=== PATIENT | female | born 1995 | race Caucasian/White ===

== ENCOUNTER 2016-08-31 15:52 | Outpatient (CLI) ==
[2016-01-30 19:08] VITALS: BMI 26.6
[2016-08-31 17:52] LABS: FLU INTERNAL QC INTERNAL QC VALID; RAPID FLU A NEGATIVE (NEGATIVE); RAPID FLU B NEGATIVE (NEGATIVE)
== END 2016-08-31 15:53 | disposition home or self-care (01) ==
LOC: LAB 15:52
PROVIDERS: ATTEND Nurse Practitioner Family
DX: R50.9 Fever, unspecified (principal); R05 Cough
CPT/HCPCS: 87651; 87804; 87880

== ENCOUNTER 2016-11-24 11:34 | Outpatient (CLI) ==
[2016-01-30 19:08] VITALS: BMI 26.6
[2016-11-24 13:07] LABS: BASOPHILS % (AUTO) 0.3 % (0.0-3.0); EOSINOPHILS # (AUTO) 0.2 K/ul (0.0-0.7); EOSINOPHILS % (AUTO) 2.1 % (0.0-7.0); HEMATOCRIT 39.4 % (37.0-47.0); HEMOGLOBIN 13.4 g/dl (12.0-16.0); IMMATURE GRANULOCYTE % (AUTO) 0.4 % (0.0-5.0); LYMPHOCYTES # (AUTO) 2.1 K/uL (0.60-3.4); LYMPHOCYTES % (AUTO) 27.6 (10.0-50.0); MEAN CORPUSCULAR HEMOGLOBIN 30.7 pg (27.0-31.0); MEAN CORPUSCULAR VOLUME 90.4 fl (81.0-99.0); MONOCYTES # (AUTO) 0.7 K/uL (0.4-2.0); MONOCYTES % (AUTO) 9.3 (0-10); NEUTROPHILS # (AUTO) 4.5 K/ul (2.0-6.9); NEUTROPHILS % (AUTO) 60.3; PLATELET COUNT 347 10^3/uL (140-440); RED BLOOD COUNT 4.36 10^6/ul (4.20-5.40); WHITE BLOOD COUNT 7.53 K/ul (4.6-10.2)
[2016-11-24 13:11] LABS: BILIRUBIN,URINE Negative (NEGATIVE); KETONES,URINE Negative (NEGATIVE); LEUKOCYTE ESTERASE ,URINE Trace (NEGATIVE); NITRITE,URINE Negative (NEGATIVE); PROTEIN,URINE Negative (NEGATIVE); URINE, BLOOD Negative (NEGATIVE)
[2016-11-24 13:13] LABS: URINE PREGNANCY INTERNAL QC INTERNAL QC VALID
[2016-11-24 13:27] LABS: ADD URINE MICROSCOPIC YES
[2016-11-24 13:28] LABS: BACTERIA,URINE 3+ (NOT PRESENT)
[2016-11-24 13:30] LABS: ALBUMIN 4.3 g/dL (3.4-5.0); ALBUMIN/GLOBULIN RATIO 1.23; ANION GAP 13.1; BILIRUBIN,TOTAL 1.32 mg/dL (0.00-1.20); BUN/CREATININE RATIO 9.52; CALCIUM 9.6 mg/dL (8.2-10.2); CREATININE 0.84 mg/dL (0.60-1.30); POTASSIUM 4.1 mmol/L (3.5-5.10); TOTAL PROTEIN 7.8 g/dL (6.4-8.2)
[2016-11-24 13:31] LABS: PROTHROMBIN TIME 9.4 SEC (9.3-11.0)
[2016-11-24 13:34] LABS: D-DIMER 246.04 ng/mL (<500)
[2016-11-25 15:29] LABS: ANTI-NUCLEAR ANTIBODY SCREEN Negative (Negative); RHEUMATOID ARTHRITIS FACTOR < 10.0 IU/mL (0.0-13.9)
== END 2016-11-24 11:35 | disposition home or self-care (01) ==
LOC: LAB 11:34
PROVIDERS: ATTEND Emergency Medicine
DX: R55 Syncope and collapse (principal); M32.9 Systemic lupus erythematosus, unspecified; O03.9 Complete or unspecified spontaneous abortion without complication
CPT/HCPCS: 36415; 80053; 81001; 81025; 84443; 85025; 85379; 85610; 86038; 86430; 87086; 87186

== ENCOUNTER 2016-11-25 12:54 | Outpatient (CLI) ==
[2016-01-30 19:08] VITALS: BMI 26.6
--- NOTE | 2016-11-25 13:24 | CT ---
EXAM: CT Head HISTORY: Syncope and collapse COMPARISON: 01/30/2016 TECHNIQUE: CT head performed without contrast FINDINGS: There is no mass effect, midline shift, or intracranial hemmorhage. Mars white different iation is preserved. There is no extra-axial collection. The ventricles, sulci, and basal cisterns are patent and symmetric. There is no depressed calvarial fracture. The mastoid air cells are nir ar. The visualized paranasal sinuses are clear. IMPRESSION: No acute intracranial abnormality.
== END 2016-11-25 12:55 | disposition home or self-care (01) ==
LOC: RAD 12:54
PROVIDERS: ATTEND Emergency Medicine
DX: R55 Syncope and collapse (principal); M32.9 Systemic lupus erythematosus, unspecified

== ENCOUNTER 2016-12-06 09:11 | Outpatient (CLI) ==
[2016-01-30 19:08] VITALS: BMI 26.6
--- NOTE | 2016-12-08 09:53 | HOLTER ---
PATIENT INFORMATION AND COMMENTS Indications: PALPITATIONS __ Patient Medications: NO MEDICATIONS __ Pre-procedure Summary: Protocol: Standard Heart Rate Started: 12/06/16929 Minimum: 41 BPM Weight: 129 LBS Ended: 12/07/16929 Maximum: 145 BPM Height: 64" Duration: 24 HOURS Average: 82 BPM _ INTERPRETATIONS/OBSERVATIONS: 1. BASIC RHYTHM: SINUS, RATE 41 BPM TO 130 BPM, AVERAGE 80 BPM, SINUS ARRHYTHMIA NOTED 2. RARE PAC'S AND PVC'S 3. NO PAUSES GREATER THAN 2.[address]-T WAVE CHANGES FROM BASELINE 5. NO CORRELATION WITH ACTIVITY LOG MTDD
== END 2016-12-06 09:12 | disposition home or self-care (01) ==
LOC: CAR 09:11
PROVIDERS: ATTEND Emergency Medicine
DX: R55 Syncope and collapse (principal); R00.2 Palpitations

== ENCOUNTER 2017-05-27 13:29 | Emergency (ER) ==
[2017-05-27 13:33] VITALS: BP 136/82; TEMP 98.2; BMI 24.0
--- NOTE | 2017-05-27 14:19 | ED.PDOC ---
General ED Provider: Dr. JAMARI WALLS Chief Complaint: Cough Stated Complaint: cough Time Seen by Physician: 13:33 Mode of Arrival: Walk-In Information Source: Patient Exam Limitations: No limitations [facility] Documentation Reviewed and Agree: Yes Reviewed sepsis parameters & appropriate labs ordered?: No System Inflammatory Response Syndrome: Not Applicable Sepsis Protocol: For patient's 13 years and over: Temp is 96.8 and below OR 101 and greater Pulse >90 BPM Resp >20/minute Acutely Altered Mental Status Are patient's symptoms suggestive of a new infection, such as: -Pneumonia -Skin, Soft Tissue -Endocarditis -UTI -Bone, Joint Infection -Implantable Device -Acute Abdominal Infection -Wound Infection -Meningitis -Blood Stream Catheter Infection -Unknown EENT Complaint Exam - Throat Complaint/Exam Onset/Duration: 1week Symptoms Are: Still present Timimg: Intermittent Initial Severity: Moderate Current Severity: Moderate Aggravating: Reports: None Alleviating: Reports: None Associated Signs and Symptoms: Reports: Cough. Denies: Fever, Dysphagia, Drooling, Foreign body sensation, Chills, Wheezing, Hoarseness, Sinus discomfort , Nasal congestion, Difficulty breathing, Lethargy, Irritability, Decreased activity, Vomiting, Diarrhea, Decreased hearing, Ear drainage Uvula Midline: Yes Myrtle-tonsillar Fluctuence: No Scarlatinaform Rash Present: No Stridor Present: No Sinus Tenderness Present: No Tonsillar Hypertrophy Present: No Tonsillar Exudate Present: No Myrtle-tonsillar Swelling Present: No Adenopathy Present: No Splenomegaly Present: No Differential Diagnoses: Pharyngitis Review of Systems - Review Of Systems Constitutional: Reports: No symptoms Eyes: Reports: No symptoms Ears, Nose, Mouth, Throat: Reports: No symptoms Respiratory: Reports: Cough Cardiac: Reports: No symptoms GI: Reports: No symptoms : Reports: No symptoms Musculoskeletal: Reports: No symptoms Skin: Reports: No symptoms Neurological: Reports: No symptoms Endocrine: Reports: No symptoms Hematologic/Lymphatic: Reports: No symptoms All Other Systems: Reviewed and Negative Past Medical History - Past Medical History Endocrine: Reports: None Cardiovascular: Reports: None Respiratory: Reports: None Hematological: Reports: None Gastrointestinal: Reports: None Genitourinary: Reports: None Neuro/Psych: Reports: Migraine, Anxiety, Depression Musculoskeletal: Reports: Arthritis (Rheumatoid. ) Cancer: Reports: None Last Menstrual Period: yesterday Other Pertinent Past Medical History: Lupus - Surgical History General Surgical History: Reports: None - Family History Family History: Reports: None - Social History Smoking Status: Current every day smoker, Heavy tobacco smoker Hx Substance Use: No Alcohol Screening: Occasionally - Immunizations Tetanus Shot up to Date: Yes Physical Exam - Physical Exam Appearance: Well-appearing, No pain distress, Well-nourished Eyes: YEIMI, EOMI, Conjunctiva clear ENT: Ears normal, Nose normal, Erythema, Exudate Respiratory: Airway patent, Breath sounds clear, Breath sounds equal, Respirations nonlabored Cardiovascular: RRR, Pulses normal, No rub, No murmur GI/: Soft, Nontender, No masses, Bowel sounds normal, No Organomegaly Musculoskeletal: Normal strength, ROM intact, No edema, No calf tenderness Skin: Warm, Dry, Normal color Neurological: Sensation intact, Motor intact, Reflexes intact, Cranial nerves intact, Alert, Oriented Psychiatric: Affect appropriate, Mood appropriate Critical Care Note - Critical Care Note Total Time (mins): 0 Course - Course Vital Signs: Temp Pulse Resp BP Pulse Ox 05/27/17 13:30 98.2 F 96 H 20 136/82 97 Departure - Departure Time of Disposition: 14:18 Disposition: HOME SELF-CARE Discharge Problem: Cough Instructions: Cold Symptoms (ED), Pharyngitis (ED) Condition: Good Pt referred to PMD for follow-up: Yes Allergies/Adverse Reactions: Allergies Penicillins Adverse Reaction (Verified 05/27/17 13:34) Home Medications: Ambulatory Orders Ibuprofen [Motrin] 600 mg PO Q6H PRN #30 tablet 01/30/16 Amoxicillin 500 mg PO Q8HR #21 tablet 05/27/17 Prednisone 20 mg PO DAILYWM #5 tablet 05/27/17
== END 2017-05-27 14:29 | disposition home or self-care (01) ==
LOC: ED 13:29
DX: R05 Cough (principal); F17.210 Nicotine dependence, cigarettes, uncomplicated
CPT/HCPCS: 99282

== ENCOUNTER 2017-08-13 03:14 | Emergency (ER) ==
[2017-08-13 03:33] VITALS: BP 122/81; TEMP 97.6; BMI 25.9
[2017-08-13] MEDS ORDERED: PREDNISONE PO STA (04:17)
[2017-08-13] MEDS ORDERED: TESSALON PERLES PO STA (04:17)
[2017-08-13] MEDS ORDERED: ZITHROMAX PO STA (04:17)
--- NOTE | 2017-08-13 04:17 | ED.PDOC ---
General ED Provider: Dr. EVELYN DONOHUE Chief Complaint: Sore Throat Stated Complaint: Patient states she has had cough that is non productive. sinus pain, left ear ache and sore throat. she also has a horse voice Has a two year old that she does not want to give it to her daughter. Time Seen by Physician: 04:13 Mode of Arrival: Walk-In Information Source: Patient [facility] Documentation Reviewed and Agree: Yes Reviewed sepsis parameters & appropriate labs ordered?: No System Inflammatory Response Syndrome: Not Applicable Sepsis Protocol: For patient's 13 years and over: Temp is 96.8 and below OR 101 and greater Pulse >90 BPM Resp >20/minute Acutely Altered Mental Status Are patient's symptoms suggestive of a new infection, such as: -Pneumonia -Skin, Soft Tissue -Endocarditis -UTI -Bone, Joint Infection -Implantable Device -Acute Abdominal Infection -Wound Infection -Meningitis -Blood Stream Catheter Infection -Unknown System Inflammatory Response Syndrome: Not Applicable EENT Complaint Exam - Throat Complaint/Exam Onset/Duration: 2 days Symptoms Are: Still present Associated Signs and Symptoms: Reports: Dysphagia, Cough. Denies: Fever, Drooling, Foreign body sensation, Chills, Wheezing, Hoarseness, Sinus discomfort , Nasal congestion, Difficulty breathing, Lethargy, Irritability, Decreased activity, Vomiting, Diarrhea, Decreased hearing, Ear drainage Uvula Midline: Yes Myrtle-tonsillar Fluctuence: No Scarlatinaform Rash Present: No Lesions: Absent: Lip, Gums, Tongue, Buccal Mucosa, Pharynx Exanthem: Absent: Lip, Gums, Tongue, Buccal Mucosa, Pharynx Vesicles: Absent: Lip, Gums, Tongue, Buccal Mucosa, Pharynx Stridor Present: No Sinus Tenderness Present: Yes (right maxillary area ) Tonsillar Hypertrophy Present: No Tonsillar Exudate Present: No Myrtle-tonsillar Swelling Present: No Adenopathy Present: Yes (mild on the left ) Splenomegaly Present: No Differential Diagnoses: Epiglottitis, Pharyngitis, Sinusitis, Tonsillitis, URI Review of Systems - Review Of Systems Constitutional: Reports: No symptoms Eyes: Reports: No symptoms Ears, Nose, Mouth, Throat: Reports: Ear pain (Left ), Throat pain Respiratory: Reports: Cough (non productive ) Cardiac: Reports: No symptoms GI: Reports: No symptoms : Reports: No symptoms Musculoskeletal: Reports: No symptoms Skin: Reports: No symptoms Neurological: Reports: Anxiety Endocrine: Reports: No symptoms Hematologic/Lymphatic: Reports: No symptoms All Other Systems: Reviewed and Negative Past Medical History - Past Medical History Endocrine: Reports: None Cardiovascular: Reports: None Respiratory: Reports: None Hematological: Reports: None Gastrointestinal: Reports: None Genitourinary: Reports: None Neuro/Psych: Reports: Migraine, Anxiety, Depression Musculoskeletal: Reports: Arthritis (Rheumatoid. ) Cancer: Reports: None Last Menstrual Period: 07/18/17 Other Pertinent Past Medical History: Lupus - Surgical History General Surgical History: Reports: None - Family History Family History: Reports: None - Social History Smoking Status: Current every day smoker, Heavy tobacco smoker Hx Substance Use: No Alcohol Screening: Occasionally - Immunizations Tetanus Shot up to Date: Yes Physical Exam - Physical Exam Appearance: Ill-appearing, No pain distress, Well-nourished Ill-appearing: Mild Eyes: YEIMI, EOMI, Conjunctiva clear ENT: Ears normal, Nose normal, Oropharynx normal Neck: Supple Respiratory: Airway patent, Breath sounds clear, Breath sounds equal, Respirations nonlabored Cardiovascular: RRR, Pulses normal, No rub, No murmur GI/: Soft, Nontender, No masses, Bowel sounds normal, No Organomegaly Musculoskeletal: Normal strength, ROM intact, No edema, No calf tenderness Skin: Warm, Dry, Normal color Neurological: Sensation intact, Motor intact, Reflexes intact, Cranial nerves intact, Alert, Oriented Psychiatric: Affect appropriate, Mood appropriate Critical Care Note - Critical Care Note Total Time (mins): 0 Course - Course Orders, Labs, Meds: Orders Category Date Time Status MOLECULAR GROUP A STREP Stat LAB 08/13/17 03:35 Completed Vital Signs: Temp Pulse Resp BP Pulse Ox 08/13/17 03:19 97.6 F 76 20 122/81 98 Departure - Departure Time of Disposition: 04:35 Disposition: HOME SELF-CARE Discharge Problem: Bronchitis Sinusitis Qualifiers: Sinusitis location: maxillary Chronicity: acute Recurrence: non-recurrent Qualified Code(s): J01.00 - Acute maxillary sinusitis, unspecified Instructions: How to Stop Smoking (ED), Sinusitis (ED), Acute Bronchitis (ED) Condition: Good Pt referred to PMD for follow-up: Yes IPMP verified?: No Additional Instructions: Take medications as prescribed Follow up with PCP in 3-5 days continue to work on smoking cessation. Prescriptions: Azithromycin [Zithromax Tri-Jatin] 500 mg PO DAILY 3 Days tablet Benzonatate [Tessalon Perles] 100 mg PO TID PRN #25 capsule PRN Reason: Cold Symptons Methylprednisolone [Medrol Dosepak] 4 mg PO DIRECTED #1 pkg Allergies/Adverse Reactions: Allergies Penicillins Adverse Reaction (Verified 08/13/17 03:15) Home Medications: Ambulatory Orders Azithromycin [Zithromax Tri-Jatin] 500 mg PO DAILY 3 Days tablet 08/13/17 Benzonatate [Tessalon Perles] 100 mg PO TID PRN #25 capsule 08/13/17 Methylprednisolone [Medrol Dosepak] 4 mg PO DIRECTED #1 pkg 08/13/17 Disposition Discussed With: Patient, Family
== END 2017-08-13 04:35 | disposition home or self-care (01) ==
LOC: ED 03:14
DX: J01.00 Acute maxillary sinusitis, unspecified (principal); J20.9 Acute bronchitis, unspecified; F17.210 Nicotine dependence, cigarettes, uncomplicated
CPT/HCPCS: 87651; 99283